=== PATIENT | female | born 1970 | race Two or more races ===

== ENCOUNTER 2020-05-24 13:04 | Outpatient (CLI) | payer OTHER ==
[~2020-05-24 13:04] MED LIST: ATORVASTATIN CA20 MG PO; CLONAZEPAM2 MG PO; MACROBID 100 M100 MG PO; PNEU16DI2 IJ; TYLENOL-CODEINE1 TAB PO
== END 2020-05-28 13:00 | disposition home or self-care (01) ==
LOC: RX STUDY 13:04
PROVIDERS: ATTEND Surgery
DX: K59.01 Slow transit constipation (principal); K59.02 Outlet dysfunction constipation; N81.6 Rectocele
CPT/HCPCS: 74018; 78266; A9541